=== PATIENT | female | born 1960 | race Caucasian/White ===

== ENCOUNTER → 2020-11-18 | Outpatient (CLI) | payer OTHER ==
[~2020-11-18] MED LIST: ALBU90OI; ALBU90OI INH; AZIT500 PO; BENZ100A PO; BUDESONIDE-FO10.2 G2 INH; DOCU100 PO; DOXY100 PO; ERYT.5TO OD; FLUO.1OPSO; FLUSAL2505; FLUSAL2505 IH; GUAI600T33 PO; HYDCHLSU PO; HYDR1TAB94 PO; INCRUSE ELLIPTA 62.5 INH; IPRAT-ALBUT 0.5-3 ML INH; LEVFLO500 PO; LEVSOD100; LEVSOD125 PO; LOSA50 PO; METPRE4DP PO; Milk Of Ma400 MG/5 M PO; Mucinex600 MG PO; PRED10 PO; PRED20 PO; Prednisone10 MG PO; Prednisone20 MG PO; Pulmicort Fle180 MCG INH; SYNTHROID100 MC6 PO; TIOT18 INH; Ventolin/Prove6.7 GM INH; Zofran Odt4 MG SL
[2020-11-18 14:11] LABS: Free Thyroxine 0.8 ng/dL (0.70-1.60); Thyroid Stimulating Hormone 43.5 uIU/mL (0.360-4.800)
== END | disposition home or self-care (01) ==
LOC: LAB SHORT 10:20 → LAB 10:20
PROVIDERS: Family Medicine
DX: E03.9 Hypothyroidism, unspecified (principal)
CPT/HCPCS: 84439; 84443

== ENCOUNTER 2021-04-09 12:13 | Inpatient (IN) | payer OTHER ==
[~2021-04-09] VITALS: Ht 162.6 cm; Wt 45.4 kg
[~2021-04-09 12:13] MED LIST changes: -AZIT500 PO; -BENZ100A PO; -BUDESONIDE-FO10.2 G2 INH; -DOCU100 PO; -GUAI600T33 PO; -INCRUSE ELLIPTA 62.5 INH; -IPRAT-ALBUT 0.5-3 ML INH; -LOSA50 PO; -Milk Of Ma400 MG/5 M PO; -Prednisone10 MG PO; -Prednisone20 MG PO; -Pulmicort Fle180 MCG INH; -SYNTHROID100 MC6 PO; -Ventolin/Prove6.7 GM INH
[2021-04-09 14:16] LABS: BASOPHILS ABSOLUTE AUTO 0.08 K/mm3 (0.00-0.23); BASOPHILS PERCENT AUTO 1 % (0-2); EOSINOPHILS ABSOLUTE AUTO 0.47 K/mm3 (0.00-0.68); EOSINOPHILS PERCENT AUTO 6 % (0-6); Hematocrit 48.2 % (33.0-51.0); Hemoglobin 14.6 g/dL (11.5-16.0); IMMATURE GRAN ABSOLUTE AUTO 0.02 K/mm3 (0.00-0.10); IMMATURE GRAN PERCENT AUTO 0 % (0-1); LYMPHOCYTES ABSOLUTE AUTO 0.95 K/mm3 (0.84-5.20); LYMPHOCYTES PERCENT AUTO 13 % (21-46); MONOCYTES ABSOLUTE AUTO 0.63 K/mm3 (0.16-1.47); MONOCYTES PERCENT AUTO 8 % (4-13); Mean Corpuscular HGB 29.4 pg (26.0-34.0); Mean Corpuscular HGB Conc 30.3 g/dL (31.5-36.5); Mean Corpuscular Volume 97 fL (80-100); Mean Platelet Volume 9.9 fL (9.1-12.4); NEUTROPHILS ABSOLUTE AUTO 5.42 K/mm3 (1.96-9.15); NEUTROPHILS PERCENT AUTO 72 % (41-73); Platelet Count 174 K/mm3 (150-400); RDW Coefficient Variation 13.9 % (11.7-14.2); RDW Standard Deviation 49.9 fL (35.1-46.3); Red Blood Cell Count 4.97 M/mm3 (3.80-5.20); White Blood Cell Count 7.57 K/mm3 (4.00-11.30)
[2021-04-09 14:29] LABS: Alanine Aminotransfer (ALT/SGP 23 U/L (12-78); Albumin, Blood 3.7 g/dL (3.4-5.0); Alk Phos 77 U/L (50-136); Anion Gap 2 mmol/L (6-16); Aspartate Aminotrans (AST/SGOT 16 U/L (12-37); Bilirubin, Total 0.3 mg/dL (0.1-1.0); Blood Urea Nitrogen 18 mg/dL (8-24); Bun/Creatinine Ratio 24.1 (12.0-20.0); CO2, Blood 35 mmol/L (21-32); Calcium, Blood 8.5 mg/dL (8.5-10.1); Chloride, Blood 101 mmol/L (98-108); Creatinine, Blood 0.75 mg/dL (0.40-1.00); Globulin, Blood 3.8 g/dL (2.2-4.0); Glomerular Filtration Rate >60 (60-); Glucose, Blood 83 mg/dL (70-99); Potassium, Blood 3.9 mmol/L (3.5-5.5); Sodium, Blood 138 mmol/L (136-145); Total Protein, Blood 7.5 g/dL (6.4-8.2)
[2021-04-09] MEDS ORDERED: BUDESONIDE-FO10.2 G2 INH (14:32)
[2021-04-09] MEDS ORDERED: SYNTHROID100 MC6 PO (17:49)
[2021-04-09] MEDS ORDERED: LOSA50 PO (17:49)
[2021-04-09] MEDS ORDERED: INCRUSE ELLIPTA 62.5 INH (17:50)
[2021-04-09] MEDS ORDERED: Ventolin/Prove6.7 GM INH (17:50)
[2021-04-09 20:42] LABS: SARS-Cov-2 (COVID-19) PCR, MMC NEGATIVE (NEGATIVE)
[2021-04-10 04:45] LABS: Hematocrit 47.9 % (33.0-51.0); Mean Corpuscular HGB 29.6 pg (26.0-34.0); Mean Corpuscular HGB Conc 31.3 g/dL (31.5-36.5); Mean Corpuscular Volume 95 fL (80-100); Mean Platelet Volume 9.7 fL (9.1-12.4); Platelet Count 196 K/mm3 (150-400); RDW Coefficient Variation 13.9 % (11.7-14.2); RDW Standard Deviation 48.6 fL (35.1-46.3); Red Blood Cell Count 5.06 M/mm3 (3.80-5.20); White Blood Cell Count 6.98 K/mm3 (4.00-11.30)
--- NOTE | 2021-04-10 04:53 | NUR ---
SHIFT SUMMARY: AAOX4. 02 88-92% AT HS, NOTED TO BE LOWER WHILE PT TALKING. NC PLACED BY RT. 02 96% ON RA THIS AM. LS CONT TO BE TIGHT. PT REPORTS SOB AND COUGH IMPROVED. INFREQUENT COUGH PRODUCES SMALL AMT OF THICK YELLOW SPUTUM. COLLECTED AND SENT TO LAB. GOOD APPETITE, REQUESTING SNACKS. CALLI ACTIVITY AROUND ROOM WELL. SOLU-MEDROL ADMINISTERED ORDERED. NO ACUTE OVERNIGHT EVENTS. WCTM.
[2021-04-10 04:59] LABS: Anion Gap 3 mmol/L (6-16); Blood Urea Nitrogen 18 mg/dL (8-24); Bun/Creatinine Ratio 24.4 (12.0-20.0); CO2, Blood 34 mmol/L (21-32); Calcium, Blood 8.7 mg/dL (8.5-10.1); Chloride, Blood 103 mmol/L (98-108); Creatinine, Blood 0.74 mg/dL (0.40-1.00); Glomerular Filtration Rate >60 (60-); Glucose, Blood 152 mg/dL (70-99); Potassium, Blood 4.6 mmol/L (3.5-5.5); Sodium, Blood 140 mmol/L (136-145)
--- NOTE | 2021-04-10 16:51 | NUR ---
Shift Summary A/Ox4, pleasant and cooperative with care. Had shower today. Denies pain, nausea, vomiting, shortness of breath. Oxygen sats > 90% on RA even with exertion. Up ambulating in hallway by self and in room. Able to make needs known. Patient feeling optimistic to go home tomorrow and claims feeling much better. WCTM and report to oncoming RN.
[2021-04-11 05:27] LABS: Albumin, Blood 3.9 g/dL (3.4-5.0); Anion Gap 3 mmol/L (6-16); Blood Urea Nitrogen 25 mg/dL (8-24); Bun/Creatinine Ratio 34.9 (12.0-20.0); CO2, Blood 31 mmol/L (21-32); Chloride, Blood 104 mmol/L (98-108); Creatinine, Blood 0.72 mg/dL (0.40-1.00); Glomerular Filtration Rate >60 (60-); Glucose, Blood 152 mg/dL (70-99); Phosphorus, Blood 3.6 mg/dL (2.5-4.9); Potassium, Blood 4.9 mmol/L (3.5-5.5); Sodium, Blood 138 mmol/L (136-145)
--- NOTE | 2021-04-11 05:33 | NUR ---
SHIFT SUMMARY: LSCTA. REPORTS INFREQUENT COUGH PRODUCING SMALL AMTS OF THICK YELLOW SPUTUM. UP AMB INDEPENDENTLY AROUND HALLWAYS. TOLERATING ACTIVITY WELL. DENIES PAIN. SOLU-MEDROL ADMINISTERED PER ORDER. NO ACUTE OVERNIGHT EVENTS.
--- NOTE | 2021-04-11 05:54 | NUR ---
PT REPORTS SHE HAS BEEN COUGHING MOST OF THE NIGHT. DID NOT INFORM STAFF OF THIS UNTIL THIS AM. TESSALON PERRLES ADMINISTERED. 02 86% THIS AM. 02 2L PLACED, 02 SAT UP TO 92%. PT HAS A WHEEZY SOUNDING COUGH. REPORTS ITS DRY BUT FEELS CONGESTED. RESPS EVEN, NON-LABORED. WCTM.
--- NOTE | 2021-04-11 10:52 | NUR ---
MILK OF MAG PT C/O OF CONSTIPATION. REFUSED SENNA THIS MORNING. PER V.O. FROM DR. BETTS, GIVE ONE TIME DOES OF MILK OF MAG NOW.
[2021-04-11] MEDS ORDERED: BENZ100A PO (12:21)
[2021-04-11] MEDS ORDERED: GUAI600T33 PO (12:21)
[2021-04-11] MEDS ORDERED: AZIT500 PO (12:21)
[2021-04-11] MEDS ORDERED: IPRAT-ALBUT 0.5-3 ML INH (12:22)
[2021-04-11] MEDS ORDERED: Prednisone10 MG PO (12:23)
--- NOTE | 2021-04-11 17:08 | NUR ---
Discharge Summary Discharging to home. Reviewed discharge paperwork with patient, copy given. Meds faxed to preferred pharmacy. Home O2 completed today, patient will need 3L O2 with activity. Discharged home with portable home O2. [facility] [place] will deliver nebulizer to home along with concentrator. Patient verbalized understanding and agreement with O2/med compliance. IV removed, WNL. Escorted by TANNING SOLUTION MAKER via w/c, personal belongings sent home.
== END 2021-04-11 16:53 | disposition home or self-care (01) | DRG 189 ==
LOC: ER 12:13 → MEDS 17:25 → ENPENDDIS 04-11 12:13 → MEDS 04-11 16:53
PROVIDERS: Physician Assistant; ADMIT Internal Medicine
DX: J96.01 Acute respiratory failure with hypoxia (principal); J44.0 Chronic obstructive pulmonary disease with (acute) lower respiratory infection; J44.1 Chronic obstructive pulmonary disease with (acute) exacerbation; E03.9 Hypothyroidism, unspecified; Z87.891 Personal history of nicotine dependence; J20.9 Acute bronchitis, unspecified; Z20.822 Contact with and (suspected) exposure to COVID-19
CPT/HCPCS: 36415; 71045; 80048; 80053; 80069; 83690; 83880; 84145; 84484; 85025; 85027; 87070; 87077; 87185; 87205; 93005; 93010; 94640; 94644; 94760; 94761; 99285-25; A9270; J2920; J7512; U0004

== ENCOUNTER 2021-06-10 06:01 | Emergency (ER) | payer OTHER ==
[~2021-06-10] VITALS: Ht 162.6 cm; Wt 49.9 kg
[~2021-06-10 06:01] MED LIST changes: +AZIT500 PO; +BENZ100A PO; +BUDESONIDE-FO10.2 G2 INH; +GUAI600T33 PO; +INCRUSE ELLIPTA 62.5 INH; +IPRAT-ALBUT 0.5-3 ML INH; +LOSA50 PO; +Prednisone10 MG PO; +SYNTHROID100 MC6 PO; +Ventolin/Prove6.7 GM INH
[2021-06-10 06:28] LABS: BASOPHILS ABSOLUTE AUTO 0.08 K/mm3 (0.00-0.23); BASOPHILS PERCENT AUTO 1 % (0-2); EOSINOPHILS ABSOLUTE AUTO 0.92 K/mm3 (0.00-0.68); EOSINOPHILS PERCENT AUTO 13 % (0-6); Hematocrit 46.8 % (33.0-51.0); Hemoglobin 14.3 g/dL (11.5-16.0); IMMATURE GRAN ABSOLUTE AUTO 0.01 K/mm3 (0.00-0.10); IMMATURE GRAN PERCENT AUTO 0 % (0-1); LYMPHOCYTES ABSOLUTE AUTO 2.05 K/mm3 (0.84-5.20); LYMPHOCYTES PERCENT AUTO 30 % (21-46); MONOCYTES ABSOLUTE AUTO 0.89 K/mm3 (0.16-1.47); MONOCYTES PERCENT AUTO 13 % (4-13); Mean Corpuscular HGB 29.6 pg (26.0-34.0); Mean Corpuscular HGB Conc 30.6 g/dL (31.5-36.5); Mean Corpuscular Volume 97 fL (80-100); Mean Platelet Volume 9.2 fL (9.1-12.4); NEUTROPHILS PERCENT AUTO 43 % (41-73); Platelet Count 240 K/mm3 (150-400); RDW Coefficient Variation 13.2 % (11.7-14.2); RDW Standard Deviation 47.3 fL (35.1-46.3); Red Blood Cell Count 4.83 M/mm3 (3.80-5.20); White Blood Cell Count 6.95 K/mm3 (4.00-11.30)
[2021-06-10 06:47] LABS: Alanine Aminotransfer (ALT/SGP 22 U/L (12-78); Albumin, Blood 3.7 g/dL (3.4-5.0); Albumin/Globulin Ratio 1.1 (0.8-1.8); Alk Phos 64 U/L (50-136); Anion Gap 3 mmol/L (6-16); Aspartate Aminotrans (AST/SGOT 13 U/L (12-37); Bilirubin, Total 0.2 mg/dL (0.1-1.0); Blood Urea Nitrogen 23 mg/dL (8-24); Bun/Creatinine Ratio 29.2 (12.0-20.0); CO2, Blood 35 mmol/L (21-32); Calcium, Blood 8.9 mg/dL (8.5-10.1); Chloride, Blood 103 mmol/L (98-108); Creatinine, Blood 0.79 mg/dL (0.40-1.00); Globulin, Blood 3.5 g/dL (2.2-4.0); Glomerular Filtration Rate >60 (60-); Glucose, Blood 96 mg/dL (70-99); Potassium, Blood 3.8 mmol/L (3.5-5.5); Sodium, Blood 141 mmol/L (136-145); Total Protein, Blood 7.2 g/dL (6.4-8.2); Troponin I <0.015 ng/mL (0.000-0.040)
[2021-06-10] MEDS ORDERED: Prednisone20 MG PO (07:45)
== END 2021-06-10 08:14 | disposition home or self-care (01) ==
LOC: ER 06:01
PROVIDERS: Emergency Medicine
DX: J44.1 Chronic obstructive pulmonary disease with (acute) exacerbation (principal); E03.9 Hypothyroidism, unspecified; J45.909 Unspecified asthma, uncomplicated; Z88.0 Allergy status to penicillin; Z88.5 Allergy status to narcotic agent; Z79.899 Other long term (current) drug therapy
CPT/HCPCS: 36415; 71045; 80053; 83880; 84484; 85025; 85379; 93005; 93010; 94640; 99285-25

== ENCOUNTER 2021-06-13 02:33 | Inpatient (IN) | payer OTHER ==
[~2021-06-13] VITALS: Ht 162.6 cm; Wt 44.5 kg
[~2021-06-13 02:33] MED LIST changes: +Prednisone20 MG PO
[2021-06-13 03:32] LABS: BASOPHILS ABSOLUTE AUTO 0.07 K/mm3 (0.00-0.23); BASOPHILS PERCENT AUTO 1 % (0-2); EOSINOPHILS PERCENT AUTO 5 % (0-6); Hematocrit 44.2 % (33.0-51.0); Hemoglobin 13.6 g/dL (11.5-16.0); IMMATURE GRAN ABSOLUTE AUTO 0.02 K/mm3 (0.00-0.10); IMMATURE GRAN PERCENT AUTO 0 % (0-1); LYMPHOCYTES ABSOLUTE AUTO 1.79 K/mm3 (0.84-5.20); LYMPHOCYTES PERCENT AUTO 28 % (21-46); MONOCYTES ABSOLUTE AUTO 0.68 K/mm3 (0.16-1.47); MONOCYTES PERCENT AUTO 11 % (4-13); Mean Corpuscular HGB 30.2 pg (26.0-34.0); Mean Corpuscular HGB Conc 30.8 g/dL (31.5-36.5); Mean Corpuscular Volume 98 fL (80-100); Mean Platelet Volume 9.4 fL (9.1-12.4); NEUTROPHILS ABSOLUTE AUTO 3.54 K/mm3 (1.96-9.15); NEUTROPHILS PERCENT AUTO 55 % (41-73); Platelet Count 230 K/mm3 (150-400); RDW Coefficient Variation 13.2 % (11.7-14.2); RDW Standard Deviation 47.9 fL (35.1-46.3)
[2021-06-13 03:34] LABS: PCO2 Arterial 71.4 mmHg (35-45); PO2 Arterial 95.9 mmHg (80-100); pH Blood Arterial 7.29 (7.35-7.45)
[2021-06-13 03:54] LABS: Alanine Aminotransfer (ALT/SGP 24 U/L (12-78); Albumin, Blood 3.3 g/dL (3.4-5.0); Alk Phos 62 U/L (50-136); Anion Gap 1 mmol/L (6-16); Aspartate Aminotrans (AST/SGOT 12 U/L (12-37); Bilirubin, Total 0.2 mg/dL (0.1-1.0); Blood Urea Nitrogen 14 mg/dL (8-24); Bun/Creatinine Ratio 18.7 (12.0-20.0); CO2, Blood 36 mmol/L (21-32); Calcium, Blood 8.3 mg/dL (8.5-10.1); Chloride, Blood 105 mmol/L (98-108); Creatinine, Blood 0.75 mg/dL (0.40-1.00); Globulin, Blood 3.3 g/dL (2.2-4.0); Glomerular Filtration Rate >60 (60-); Glucose, Blood 180 mg/dL (70-99); Potassium, Blood 3.6 mmol/L (3.5-5.5); Sodium, Blood 142 mmol/L (136-145); Total Protein, Blood 6.6 g/dL (6.4-8.2)
[2021-06-13 05:02] LABS: Troponin I <0.015 ng/mL (0.000-0.040)
[2021-06-13 05:04] LABS: PO2 Arterial 121 mmHg (80-100); pH Blood Arterial 7.31 (7.35-7.45)
[2021-06-13 05:06] LABS: PCO2 Arterial 70.6 mmHg (35-45)
--- NOTE | 2021-06-13 16:53 | NUR ---
SHIFT SUMMARY NO ACUTE CHANGES NOTED TO PT THIS SHIFT. PT AAOX4, ABLE TO MAKE NEEDS KNOWN, PLEASANT AND COOPERATIVE TO CARE. PT MEDICATED FOR PAIN PER EMAR. NO C/O ANY OTHER DISCOMFORT, DENIES CP OR N&V. PT ON 2LPM O2 VIA NC, SATS >92%. CONTINUES TO RECEIVE TX FROM RT STAFF ORDERED. PT REQUIRES SBA TO THE BATHROOM. BED AT LOWEST POSITION. CALL LIGHT WITHIN REACH.
[2021-06-13] MEDS ORDERED: Pulmicort Fle180 MCG INH (23:19)
--- NOTE | 2021-06-14 06:44 | NUR ---
SHIFT SUMMARY NO ACUTE CHANGES THIS SHIFT. PT A/O X4; PLEASANT AND COOPERATIVE WITH CARE. HAS NO COMPLAINTS AND IS ABLE TO MAKE HER NEEDS KNOWN. BEEN RESTING COMFORTABLY IN BED FOR THE MAJORITY OF THE SHIFT WITH HER CALL LIGHT IN REACH. VSS.
[2021-06-14 08:11] LABS: Anion Gap 1 mmol/L (6-16); Blood Urea Nitrogen 19 mg/dL (8-24); Bun/Creatinine Ratio 25.2 (12.0-20.0); CO2, Blood 37 mmol/L (21-32); Calcium, Blood 8.9 mg/dL (8.5-10.1); Chloride, Blood 102 mmol/L (98-108); Creatinine, Blood 0.76 mg/dL (0.40-1.00); Glomerular Filtration Rate >60 (60-); Glucose, Blood 160 mg/dL (70-99); Potassium, Blood 4.8 mmol/L (3.5-5.5); Sodium, Blood 140 mmol/L (136-145)
--- NOTE | 2021-06-14 12:13 | NUR ---
PER DR CROOKS, GOAL O2 SATURATION LEVELS TO BE BETWEEN 88-95%. DAKSHA ORDERED TO SUPPLY O2 SUPPLEMENTATION PRN TO MAINTAIN THESE RATES. PT WEANED DOWN TO 0.5 LPM NC, O2 SAT WAS 93%. WILL CONTINUE TO MONITOR AND WEAN PT OFF O2 IF O2 SATS REMAIN ABOVE 88% ON RA.
--- NOTE | 2021-06-14 17:56 | NUR ---
SHIFT SUMMARY NO ACUTE CHANGES T/O SHIFT, A&O, COOPERATIVE c CARE, DENIES ANY DISTRESS T/O SHIFT. PT IS ON 0.5 LPM VIA NC AT THIS TIME, O2 SATS REMAINING BETWEEN 88-95% PER PROVIDER ORDERS. NO C/O OF SOB T/O SHIFT. POSSIBLE DC TOMORROW. PT IS CURRENTLY RESTING IN BED EATING DINNER AND TALKING ON THE PHONE. CALL LIGHT WITHIN REACH.
--- NOTE | 2021-06-15 04:10 | NUR ---
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 UP TO THE BATHROOM A FEW TIMES SHE IS UP AD MELLY. NO NOTED S/S ACUTE DISTRESS. CALL LIGHT IN REACH. O2 PER NC AT 0.5 L/MIN PER NC. WILL CONTINUE TO MONITOR
[2021-06-15 06:23] LABS: PO2 Arterial 84.3 mmHg (80-100); pH Blood Arterial 7.34 (7.35-7.45)
[2021-06-15 06:25] LABS: PCO2 Arterial 74.8 mmHg (35-45)
[2021-06-15 09:39] LABS: Anion Gap -1 mmol/L (6-16); Blood Urea Nitrogen 26 mg/dL (8-24); Bun/Creatinine Ratio 34.9 (12.0-20.0); CO2, Blood 42 mmol/L (21-32); Calcium, Blood 9.3 mg/dL (8.5-10.1); Chloride, Blood 100 mmol/L (98-108); Creatinine, Blood 0.75 mg/dL (0.40-1.00); Glomerular Filtration Rate >60 (60-); Glucose, Blood 121 mg/dL (70-99); Potassium, Blood 4.9 mmol/L (3.5-5.5); Sodium, Blood 141 mmol/L (136-145)
--- NOTE | 2021-06-15 13:18 | NUR ---
PT CODE STATUS CHANGED TO DNI. PROVIDER CAME TO SPEAK c PT REGARDING ABG RESULTS AND POTENTIAL USE OF CPAP/BiPAP. PT UNSURE OF WHAT SHE WANTS TO DO AND PROVIDER DISCUSSED POTENTIAL RISKS. PT THEN STATED SHE DOES NOT WANT ANY TUBES IF SHE WAS TO GO UNCONSCIOUS OR STOPS BREATHING. RT CAME TO DISCUSS WITH PT REGARDING CPAP AND BiPAP, PRINTED MATERIAL ALSO PROVIDED BY NURSE. PT STILL UNSURE OF DECISION AND STATES SHE WOULD LIKE TO THINK ABOUT IT.
--- NOTE | 2021-06-15 16:35 | NUR ---
SHIFT SUMMARY NO ACUTE CHANGES, A&O, CALM AND COOPERATIVE, DENIES ANY DISTRESS T/O SHIFT. PT ON RA CURRENTLY AND IS DENYING ANY SOB OR DIFFCULTY BREATHING c AMBULATION. O2 SATS @ 91%, THIS IS WITHIN PARAMETERS ORDERED BY PROVIDER. PT IS STILL CONSIDERING CPAP OR BiPAP OPTIONS. PT IS CURRENTLY RESTING IN BED WITH CALL LIGHT WITHIN REACH. CALLS APPROPRIATELY, INDEPENDENT IN ROOM.
--- NOTE | 2021-06-15 18:08 | NUR ---
PT REQUESTED HER KEYS TO BE GIVEN TO HER S/O MARISELA. PT ALREADY HAD SON A VISITOR TODAY SO KEYS WERE RAN DOWNSTAIRS BY NURSE. KEITH ALBERTO RN WITNESSED PT REQUEST AND NAME OF PERSON WHO WOULD BE OBTAINING THE KEYS.
--- NOTE | 2021-06-15 19:15 | NUR ---
AWAKE, VOICED FRUSTRATION WITH HOSPITAL SUGGESTIONS FOR CPAP AND SUCH, VOICED HX OF DIFFICULTIES WITH BEING "UNDECIDED" AND NOT BEING ABLE TO "MAKE DECISIONS" FOR MUCH OF HER LIFE. STAFF PROVIDED ENCOURAGEMENT. CALL LIGHT IN REACH
--- NOTE | 2021-06-16 05:03 | NUR ---
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 HOB ELEVATED TO HELP WITH RESPS, O2 PER NC AT 1/2 L/MIN PER NC AT INTERVALS. VOICED SHE WAS SATING OK (PULSE OX REVEALED 94%) AND SO SHE TOOK OFF THE O2. SATURATION CONTINUES WHEN MONITORED THROUGH THE REST OF THE SHIFT. NOTED ANXIETY AT SHIFT BEGINNING, BUT EVENTUALLY PT VOICED SHE TRUSTED STAFF AND ANX DECREASED AND AFFECT SEEMED TO CHEER UP AND THAT WAS THE TIME SHE VOICED HER SATS WERE AT 94% - SEE ABOVE. CURRENTLY RESTING QUIETLY. CALL LIGHT IN REACH.
[2021-06-16 15:41] LABS: Source, Urine Clean Catch
[2021-06-16 15:43] LABS: Bilirubin, Urine Neg (Neg); Blood, Urine Neg (Neg); Glucose Qualitative, Urine Neg (Neg); Ketones, Urine Neg (Neg); Leukocyte Esterase, Urine Neg (Neg); Nitrite, Urine Neg (Neg); Protein, Urine Neg (Neg); Urobilinogen, Urine NORM (Normal)
--- NOTE | 2021-06-16 16:21 | NUR ---
SHIFT SUMMARY NO ACUTE CHANGES, VSS, CALM AND COOPERATIVE, DENIES ANY DISTRESS T/O SHIFT. PT DID HAVE 2 BM THIS SHIFT, STATES HER ABD FEELS MUCH BETTER. PT IS WILLING TO TRY CPAP, MACHINE WILL BE DELIVERED TO PT PRIOR TO DC. POSSIBLE DC HOME TOMORROW. PT REMAINS INDEPENDENT IN ROOM AND TOLERATING ACTIVITY WELL. ON RA T/O SHIFT AND DENYING ANY DIFFICULTY BREATHING OR SOB. PT CALLS APPROPRIATELY AND MAKES NEEDS KNOWN.
[2021-06-16 16:37] LABS: Appearance, Urine Clear (Clear); Color, Urine Pale Yellow (P-Yellow)
--- NOTE | 2021-06-16 19:53 | NUR ---
AWAKE. VOICED TAKING INTERMITTENT PULSE OX (HAS DEVICE IN HAND) AND HAS BEEN 91% FOR THE PAST "4 HRS". NURSE ASKED TO RECHECK IT, 88% AT THIS TIME. INSTRUCTED TO PUT O2 BACK ON (O2 1L/MIN) FOR 1/2 HR AND RECHECK THEN. CALL LIGHT INR EACH
--- NOTE | 2021-06-17 00:02 | NUR ---
AWAKE AND AMBULATING ABOUT ROOM, KNOCKED ITEMS OFF HER TABLE, VOICED SHE WAS FINE SHE PICKED THEM BACK UP. STATED "GOOD NIGHT" AND SAID SHE WAS GOING TO BED FOR THE NIGHT. CALL LIGHT IN REACH
--- NOTE | 2021-06-17 04:41 | NUR ---
MEDIA SERVICES DIRECTOR SUMMARY HAS BEEN RESTING QUIETLY AT INTERVALS THIS SHIFT. HAS WORN AND TAKEN OFF HER O2 AT RANDOM, APPARENTLY TESTING HERSELF FOR O2 SATS TO SEE IF SHE NEEDS THE O2. CURRENTLY O2 ON PER NC. UP AD MELLY, CALL LIGHT IN REACH.
[2021-06-17] MEDS ORDERED: DOCU100 PO (13:02)
[2021-06-17] MEDS ORDERED: IPRAT-ALBUT 0.5-3 ML INH (13:08)
[2021-06-17] MEDS ORDERED: Milk Of Ma400 MG/5 M PO (13:09)
--- NOTE | 2021-06-17 16:05 | NUR ---
PT WAS DISCHARGED WITH BELONGINGS AT SIDE, VIA WHEELCHAIR. PT REMAINED AMBULATORY AND IND, ALERT AND ORIENTED X4 MAKING NO C/O OF PAIN OR SOB AT THE TIME. PT MEDICATIONS WERE FAXED TO HER PREFERED PHARMACY. EDUCATION WAS GIVEN RE FOLLOW UP APPOINTMENTS, HH VISISTS TO TAKE PLACE AND CPAP INSTRUCTIONS. PT WAS ABLE TO VERBALIZE UNDERSTANDING AND ASK QUESTION. QUESTIONS ANSWERED AND PT COOPERATIVE TO CAREPLAN.
== END 2021-06-17 14:59 | disposition home health service (06) | DRG 189 ==
LOC: ER 02:33 → MEDS 02:34
PROVIDERS: Emergency Medicine; Family Medicine; Student in an Organized Health Care Education/Training Program; ADMIT Internal Medicine
DX: J96.22 Acute and chronic respiratory failure with hypercapnia (principal); R65.10 Systemic inflammatory response syndrome (SIRS) of non-infectious origin without acute organ dysfunction; J44.1 Chronic obstructive pulmonary disease with (acute) exacerbation; Z66 Do not resuscitate; I10 Essential (primary) hypertension; E05.90 Thyrotoxicosis, unspecified without thyrotoxic crisis or storm; J96.21 Acute and chronic respiratory failure with hypoxia; Z99.81 Dependence on supplemental oxygen; Z88.5 Allergy status to narcotic agent; Z88.0 Allergy status to penicillin; Z87.891 Personal history of nicotine dependence; Z98.890 Other specified postprocedural states; Z98.51 Tubal ligation status; Z79.52 Long term (current) use of systemic steroids; Z79.899 Other long term (current) drug therapy
CPT/HCPCS: 36415; 36600; 71045; 80048; 80053; 81003; 82803; 83605; 83880; 84484; 85025; 93005; 93010; 94640; 94644; 94664; 94668; 94760; 94761; 94762; 96365; 96375; 99285-25; A9270; G0378; J0456; J2930; J7050; J7512

== ENCOUNTER → 2022-02-12 | Outpatient (CLI) | payer OTHER ==
[~2022-02-12] MED LIST changes: +DOCU100 PO; +Milk Of Ma400 MG/5 M PO; +Pulmicort Fle180 MCG INH
== END | disposition home or self-care (01) ==
LOC: LAB 11:08 → LAB SHORT 11:08
DX: R07.0 Pain in throat (principal)
CPT/HCPCS: 87081

== ENCOUNTER → 2023-04-23 | Outpatient (CLI) | payer OTHER ==
[2023-04-23 18:01] LABS: BASOPHILS ABSOLUTE AUTO 0.07 K/mm3 (0.00-0.23); BASOPHILS PERCENT AUTO 1 % (0-2); EOSINOPHILS ABSOLUTE AUTO 0.37 K/mm3 (0.00-0.68); EOSINOPHILS PERCENT AUTO 6 % (0-6); Hemoglobin 13.7 g/dL (11.5-16.0); IMMATURE GRAN ABSOLUTE AUTO 0.02 K/mm3 (0.00-0.10); IMMATURE GRAN PERCENT AUTO 0 % (0-1); LYMPHOCYTES ABSOLUTE AUTO 1.07 K/mm3 (0.84-5.20); LYMPHOCYTES PERCENT AUTO 17 % (21-46); MONOCYTES ABSOLUTE AUTO 0.62 K/mm3 (0.16-1.47); MONOCYTES PERCENT AUTO 10 % (4-13); Mean Corpuscular HGB 29.7 pg (26.0-34.0); Mean Corpuscular HGB Conc 32.6 g/dL (31.5-36.5); Mean Corpuscular Volume 91 fL (80-100); Mean Platelet Volume 9.7 fL (9.1-12.4); NEUTROPHILS ABSOLUTE AUTO 4.35 K/mm3 (1.96-9.15); NEUTROPHILS PERCENT AUTO 67 % (41-73); Platelet Count 227 K/mm3 (150-400); RDW Coefficient Variation 13.4 % (11.7-14.2); RDW Standard Deviation 44.7 fL (35.1-46.3); Red Blood Cell Count 4.61 M/mm3 (3.80-5.20)
[2023-04-23 18:13] LABS: Albumin, Blood 3.7 g/dL (3.4-5.0); Albumin/Globulin Ratio 1.1 (0.8-1.8); Bilirubin, Total 0.6 mg/dL (0.1-1.0); Bun/Creatinine Ratio 16.3 (12.0-20.0); Calcium, Blood 9.3 mg/dL (8.5-10.1); Creatinine, Blood 0.86 mg/dL (0.40-1.00); Globulin, Blood 3.5 g/dL (2.2-4.0); Potassium, Blood 4.2 mmol/L (3.5-5.5); Total Protein, Blood 7.2 g/dL (6.4-8.2)
== END | disposition home or self-care (01) ==
LOC: LAB SHORT 17:55 → LAB 17:55
PROVIDERS: Chiropractor
DX: R06.02 Shortness of breath (principal)
CPT/HCPCS: 80053; 84484; 85025; 85379

== ENCOUNTER → 2023-11-01 | Outpatient (CLI) | payer OTHER ==
[2023-11-04 07:47] LABS: QUANTIFERON MITOGEN MINUS NIL >10.00 IU/mL; QUANTIFERON NIL 0.02 IU/mL; QUANTIFERON TB GOLD PLUS Negative (Negative)
== END | disposition home or self-care (01) ==
LOC: LAB 12:40 → LAB SHORT 12:40
PROVIDERS: Family Medicine
DX: R63.4 Abnormal weight loss (principal)
CPT/HCPCS: 86480

== ENCOUNTER → 2024-09-28 | Outpatient (CLI) | payer OTHER ==
[2024-09-28 18:16] LABS: BASOPHILS ABSOLUTE AUTO 0.06 K/mm3 (0.00-0.23); BASOPHILS PERCENT AUTO 1 % (0-2); EOSINOPHILS ABSOLUTE AUTO 0.49 K/mm3 (0.00-0.68); EOSINOPHILS PERCENT AUTO 7 % (0-6); Hematocrit 43.8 % (33.0-51.0); Hemoglobin 13.9 g/dL (11.5-16.0); IMMATURE GRAN ABSOLUTE AUTO 0.02 K/mm3 (0.00-0.10); IMMATURE GRAN PERCENT AUTO 0 % (0-1); LYMPHOCYTES ABSOLUTE AUTO 1.41 K/mm3 (0.84-5.20); LYMPHOCYTES PERCENT AUTO 21 % (21-46); MONOCYTES PERCENT AUTO 9 % (4-13); Mean Corpuscular HGB Conc 31.7 g/dL (31.5-36.5); Mean Corpuscular Volume 94 fL (80-100); Mean Platelet Volume 9.4 fL (9.1-12.4); NEUTROPHILS ABSOLUTE AUTO 4.01 K/mm3 (1.96-9.15); NEUTROPHILS PERCENT AUTO 61 % (41-73); Platelet Count 228 K/mm3 (150-400); RDW Coefficient Variation 13.3 % (11.7-14.2); RDW Standard Deviation 46.5 fL (35.1-46.3); Red Blood Cell Count 4.64 M/mm3 (3.80-5.20); White Blood Cell Count 6.59 K/mm3 (4.00-11.30)
[2024-09-28 18:20] LABS: Bun/Creatinine Ratio 32.5 (12.0-20.0); Calcium, Blood 9.2 mg/dL (8.5-10.1); Creatinine, Blood 0.83 mg/dL (0.40-1.00); Potassium, Blood 4.2 mmol/L (3.5-5.5)
== END | disposition home or self-care (01) ==
LOC: LAB SHORT 18:10 → LAB 18:10
PROVIDERS: Physician Assistant Surgical
DX: R07.89 Other chest pain (principal); R06.02 Shortness of breath
CPT/HCPCS: 80048; 84484; 85025; 85379

== ENCOUNTER 2024-11-09 09:16 | Emergency (ER) | payer OTHER ==
[~2024-11-09] VITALS: Ht 162.6 cm; Wt 43.1 kg
[2024-11-09 09:25] VITALS: BP 126/105
[2024-11-09 10:08] LABS: BASOPHILS ABSOLUTE AUTO 0.05 K/mm3 (0.00-0.23); BASOPHILS PERCENT AUTO 1 % (0-2); EOSINOPHILS ABSOLUTE AUTO 0.07 K/mm3 (0.00-0.68); EOSINOPHILS PERCENT AUTO 1 % (0-6); Hematocrit 39.6 % (33.0-51.0); Hemoglobin 12.6 g/dL (11.5-16.0); IMMATURE GRAN ABSOLUTE AUTO 0.04 K/mm3 (0.00-0.10); IMMATURE GRAN PERCENT AUTO 0 % (0-1); LYMPHOCYTES ABSOLUTE AUTO 0.38 K/mm3 (0.84-5.20); LYMPHOCYTES PERCENT AUTO 4 % (21-46); MONOCYTES PERCENT AUTO 6 % (4-13); Mean Corpuscular HGB 29.9 pg (26.0-34.0); Mean Corpuscular HGB Conc 31.8 g/dL (31.5-36.5); Mean Corpuscular Volume 94 fL (80-100); Mean Platelet Volume 9.8 fL (9.1-12.4); NEUTROPHILS ABSOLUTE AUTO 9.21 K/mm3 (1.96-9.15); NEUTROPHILS PERCENT AUTO 89 % (41-73); Platelet Count 222 K/mm3 (150-400); RDW Coefficient Variation 13.3 % (11.7-14.2); RDW Standard Deviation 45.4 fL (35.1-46.3); Red Blood Cell Count 4.21 M/mm3 (3.80-5.20); White Blood Cell Count 10.35 K/mm3 (4.00-11.30)
[2024-11-09 10:28] LABS: Albumin, Blood 3.2 g/dL (3.4-5.0); Albumin/Globulin Ratio 0.9 (0.8-1.8); Bilirubin, Total 0.5 mg/dL (0.1-1.0); Bun/Creatinine Ratio 26.9 (12.0-20.0); Calcium, Blood 8.8 mg/dL (8.5-10.1); Creatinine, Blood 0.56 mg/dL (0.40-1.00); Globulin, Blood 3.6 g/dL (2.2-4.0); Potassium, Blood 3.9 mmol/L (3.5-5.5); Total Protein, Blood 6.8 g/dL (6.4-8.2)
== END 2024-11-09 12:18 | disposition left against medical advice (07) ==
LOC: ER 09:16
PROVIDERS: Student in an Organized Health Care Education/Training Program
DX: R06.02 Shortness of breath (principal); R05.9 Cough, unspecified; R68.83 Chills (without fever); M54.9 Dorsalgia, unspecified; Z53.21 Procedure and treatment not carried out due to patient leaving prior to being seen by health care provider
CPT/HCPCS: 71046; 80053; 84484; 85025; 93005; 93010

== ENCOUNTER 2025-01-20 05:42 | Emergency (ER) | payer OTHER ==
[~2025-01-20] VITALS: Ht 162.6 cm; Wt 44.0 kg
[2025-01-20] MEDS ORDERED: Albuterol 2.5 MG/3 ML VIAL INH SCH (06:25)
[2025-01-20] MEDS ORDERED: PredniSONE 20 MG Tab PO ONE (08:15)
[2025-01-20 08:30] VITALS: BP 156/78
== END 2025-01-20 08:28 | disposition home or self-care (01) ==
LOC: ER 05:42
DX: J44.1 Chronic obstructive pulmonary disease with (acute) exacerbation (principal); I10 Essential (primary) hypertension; E03.9 Hypothyroidism, unspecified; Z87.891 Personal history of nicotine dependence; Z79.52 Long term (current) use of systemic steroids; Z79.899 Other long term (current) drug therapy; Z79.51 Long term (current) use of inhaled steroids; Z88.5 Allergy status to narcotic agent; Z88.0 Allergy status to penicillin
CPT/HCPCS: 71046; 94644; 94664; 99285-25; J7512

== ENCOUNTER → 2025-06-28 | Outpatient (CLI) | payer OTHER ==
[2025-06-28 12:40] LABS: BASOPHILS ABSOLUTE AUTO 0.07 K/mm3 (0.00-0.23); BASOPHILS PERCENT AUTO 1 % (0-2); EOSINOPHILS ABSOLUTE AUTO 0.25 K/mm3 (0.00-0.68); EOSINOPHILS PERCENT AUTO 5 % (0-6); Hematocrit 41.2 % (33.0-51.0); Hemoglobin 12.8 g/dL (11.5-16.0); IMMATURE GRAN ABSOLUTE AUTO 0.01 K/mm3 (0.00-0.10); IMMATURE GRAN PERCENT AUTO 0 % (0-1); LYMPHOCYTES ABSOLUTE AUTO 0.99 K/mm3 (0.84-5.20); LYMPHOCYTES PERCENT AUTO 18 % (21-46); MONOCYTES ABSOLUTE AUTO 0.49 K/mm3 (0.16-1.47); MONOCYTES PERCENT AUTO 9 % (4-13); Mean Corpuscular HGB Conc 31.1 g/dL (31.5-36.5); Mean Corpuscular Volume 94 fL (80-100); NEUTROPHILS ABSOLUTE AUTO 3.75 K/mm3 (1.96-9.15); NEUTROPHILS PERCENT AUTO 67 % (41-73); NRBC ABSOLUTE 0.00 K/mm3 (0.00-0.02); NRBC Auto 0.0 /100 WBC (0.0-0.2); Platelet Count 190 K/mm3 (150-400); RDW Coefficient Variation 13.4 % (11.7-14.2); RDW Standard Deviation 46.6 fL (35.1-46.3)
[2025-06-28 12:41] LABS: Alanine Aminotransfer (ALT/SGP 25 U/L (12-78); Albumin, Blood 3.6 g/dL (3.4-5.0); Albumin/Globulin Ratio 1.1 (0.8-1.8); Anion Gap 9 mmol/L (3-11); Aspartate Aminotrans (AST/SGOT 17 U/L (12-37); Bilirubin, Total 0.4 mg/dL (0.1-1.0); Blood Urea Nitrogen 18 mg/dL (8-24); CHOL/HDL RATIO 1.6; CO2, Blood 29 mmol/L (21-32); Calcium, Blood 8.9 mg/dL (8.5-10.1); Chloride, Blood 104 mmol/L (98-108); Cholesterol 226 mg/dL (50-200); Creatinine, Blood 0.75 mg/dL (0.40-1.00); Globulin, Blood 3.2 g/dL (2.2-4.0); Glucose, Blood 105 mg/dL (70-99); HDL Cholesterol 141 mg/dL (>39); LDL/HDL RATIO 0.6; Low Density Lipoprotein Chol 78 mg/dL (0-110); Potassium, Blood 3.9 mmol/L (3.5-5.5); Sodium, Blood 138 mmol/L (136-145); Thyroid Stimulating Hormone 3.820 uIU/mL (0.360-4.800); Total Protein, Blood 6.8 g/dL (6.4-8.2); Triglycerides 37 mg/dL (30-160); Very Low Density Lipoprot Chol 7 mg/dL (6-32)
== END | disposition home or self-care (01) ==
LOC: LAB SHORT 11:32 → LAB 11:32
PROVIDERS: Student in an Organized Health Care Education/Training Program
DX: E03.9 Hypothyroidism, unspecified (principal); R73.03 Prediabetes
CPT/HCPCS: 80053; 80061; 83036; 84443; 85025